=== PATIENT | female | born 2000 | race Hispanic/Latino ===

== ENCOUNTER 2025-01-05 10:23 | Day surgery (SDC) | payer BC, OTHER ==
[2025-01-05] MEDS: Ringers Lactate 1,000 ML IV ONE (10:25)
[2025-01-05] MEDS ORDERED: ROCURONIUM 50 MG/5 ML VIAL IV ONE (12:14)
[2025-01-05] MEDS ORDERED: LIDOCAINE 2% MPF 5 ML VIAL ONE (12:14)
[2025-01-05] MEDS ORDERED: ONDANSETRON 4 MG/2 ML VIAL ONE (12:14)
[2025-01-05] MEDS ORDERED: MIDAZOLAM HCL 2 MG/2 ML INJ ONE (12:15)
[2025-01-05] MEDS ORDERED: FENTANYL CITR 100 MCG/2 ML ONE ×2 (12:15→13:23)
[2025-01-05] MEDS ORDERED: propofoL 200 MG/20 ML VIAL IV ONE (12:15)
[2025-01-05] MEDS ORDERED: dexAMETHasone 10 MG/ML VIAL ONE (12:57)
[2025-01-05] MEDS: CEFOXITIN SODIUM 2 GM/VIAL ONE (12:59)
[2025-01-05] MEDS ORDERED: GLYCOPYRROLATE 0.2 MG/ML SYR ONE ×2 (13:06→13:31)
[2025-01-05] MEDS ORDERED: EPHEDRINE SULF 50 MG/ML VIAL ONE (13:12)
[2025-01-05] MEDS: LIDOCAINE HCL/EPINEPHRINE 20 ML MDV ONE (13:16)
[2025-01-05] MEDS ORDERED: KETOROLAC 30 MG/ML INJ ONE (13:24)
[2025-01-05] MEDS ORDERED: NEOSTIGMINE 1 MG/ML -10 ML VIAL ONE (13:31)
--- NOTE | 2025-01-05 13:44 | P.OP ---
Preoperative diagnosis: Chronic Cholecystitis with Cholelithiasis Postoperative diagnosis: Chronic Cholecystitis with Cholelithiasis Primary procedure: Laparoscopic Cholecystectomy with ICG Cholangiography Anesthesia: GETA + Local Estimated blood loss: <5cc Specimen: Gallbladder Findings: Gallstones Complications: None Transferred to: Recovery Room Condition: Good
[2025-01-05 16:22] VITALS: BP 113/69; TEMP 97; O2SAT 98
--- NOTE | 2025-01-06 01:35 | OP ---
Date of Procedure: 01/05/2025 Surgeon: Per Tovar MD, Preoperative Diagnosis: Chronic cholecystitis with cholelithiasis. Postoperative Diagnosis: Chronic cholecystitis with cholelithiasis. Procedure Performed: Laparoscopic cholecystectomy with indocyanine green cholangiography. Anesthesia: General endotracheal plus local with 1% lidocaine with epinephrine. Estimated Blood Loss: 5 cc. Specimen: Gallbladder. Findings: Consistent with chronic cholecystitis and inflammatory changes to the right upper quadrant caused adhesions between the omentum and the anterior surface of the gallbladder as well as portions of the colon. Disposition: The patient was transferred to recovery room in good condition. Procedure In Detail: After informed consent was obtained, the patient was brought to the operating r oom, prepped in the usual sterile fashion. After adequate anesthesia was achieved, I anesthetized an area of the supraumbilical position down to subcutaneous tissues. A 5 mm 0-degree optical trocar wa s introduced into the abdomen without incident or complication. Insufflation was obtained to 15 mmHg . At this time, there was no injury to vital structures upon entry into the abdomen. Two additional trocars were placed, one in the epigastrium and one in the right upper quadrant. Both of these were similarly anesthetized and sharply incised. A 5 mm trocar was placed under direct visualization wit hout incident or complication. The umbilical trocar was then upsized to 12 mm under direct visualiza tion without incident or complication. The patient was positioned head up, right-side up position. Ratcheted grasper was used to grasp the patient's gallbladder, and placed towards the patient's right shoulder. Dissection continued down to remove adhesions on the anterior surface of the gallbladder using combination of blunt dissection as well as electrocautery with minimal usage. At this point, I skeletonized 2 structures near the Jacobo pouch of the gallbladder, and identified both cystic juan t and cystic artery. Both these structures were skeletonized and indocyanine green cholangiography w as performed at this point showing the confluence of the cystic duct and common duct junction far gena y from the proposed transection site. I then placed double titanium clips on the proximal side and s ingly on the distal side, both cystic duct and cystic artery. I then ligated these structures betwee n Endo [facility] without incident or complication. The gallbladder was removed from the hepatic fossa w ithout incident or complication, and sent off for pathologic examination. The area was copiously irr igated and suctioned out until completely dry. The area was inspected at this point. Indocyanine gr een cholangiography was performed, showed no leakage of bile. Clips were found to be in good anatomi c position. No additional hemostatic maneuvers required. The remaining effluent was suctioned out a fter the patient was positioned back in the neutral position. The 12 mm trocar site was closed using Adolfo-Shereen suture passer with 0 Vicryl in an interrupted fashion with good approximation of tis sues. The abdomen was desufflated under direct visualization without incident or complication. All trocars were removed. All skin incisions were then copiously irrigated and closed with a 4-0 Monocry l in a running fashion. Dermabond was placed over top. The patient tolerated procedure without inci dent or complication, and transferred to PACU in good condition. All counts were correct at the end of the case. ANITA/AHMET Voice ID: [id number] Report ID: [id number]
== END 2025-01-05 15:20 | disposition home or self-care (01) ==
LOC: OR 10:23
PROVIDERS: ATTEND Surgery
PROC: BF50200 Other Imaging of Bile Ducts using Fluorescing Agent, Indocyanine Green Dye, Intraoperative (ICD-10-PCS; 2025-01-05)
PROC: 0FT44ZZ Resection of Gallbladder, Percutaneous Endoscopic Approach (ICD-10-PCS; principal; 2025-01-05 13:00)
DX: K80.10 Calculus of gallbladder with chronic cholecystitis without obstruction (principal)
CPT/HCPCS: 93005; 80048; 36415; 81025; 47563; J2704; J2710; J2003; J2250; J3010 ×2; J1100; J0694; J2405; J7120; 88304